=== PATIENT | female | born 1985 | race Caucasian/White ===

== ENCOUNTER → 2023-11-26 11:17 | Outpatient (BNVA) | payer OTHER, SELFPAY | PROVIDERS: Family Provider Family Medicine; Visit Provider Emergency Medicine | DX: E03.9 Hypothyroidism, unspecified (principal); R63.5 Abnormal weight gain; R53.83 Other fatigue | CPT/HCPCS: 80053; 84443; 85025 ==

== ENCOUNTER → 2024-03-27 11:28 | Outpatient (BNVA) | payer OTHER, SELFPAY | PROVIDERS: Family Provider Family Medicine; Visit Provider Nurse Practitioner | DX: E03.9 Hypothyroidism, unspecified (principal); E55.9 Vitamin D deficiency, unspecified | CPT/HCPCS: 82306; 82607; 84439; 84443; 84480 ==

== ENCOUNTER 2024-05-05 10:58 | Outpatient (CLI) | payer OTHER, SELFPAY ==
--- NOTE | 2024-05-05 11:30 | MM_ITS ---
WS: [id number] BILATERAL 3D TOMOSYNTHESIS DIGITAL SCREENING MAMMOGRAPHY WITH CAD CLINICAL INFORMATION: Z12.39 - Encounter for other screening for malignant neop... HISTORY: Screening mammogram. No current complaints. COMPARISON: 2018 TECHNIQUE: Bilateral CC and MLO views. FINDINGS: Evidence of bilateral breast reduction The breasts are composed of heterogeneous fibroglandular density tissue, which can limit the detectio n of small underlying mass lesions. No suspicious mass, asymmetry, calcifications, or architectural d istortion. No evidence of malignancy. MM/[place] [id number] IMPRESSION: BI-RADS: 2-Benign FOLLOW UP: 1 Year Follow-up Recommend return to annual screening mammography.
== END 2024-05-05 10:59 | disposition home or self-care (01) ==
LOC: RAD 10:58
PROVIDERS: Family Provider Family Medicine; PCP Nurse Practitioner; Visit Provider Nurse Practitioner
DX: Z12.31 Encounter for screening mammogram for malignant neoplasm of breast (principal); R92.333 Mammographic heterogeneous density, bilateral breasts; R92.323 Mammographic fibroglandular density, bilateral breasts
CPT/HCPCS: 77063; 77067

== ENCOUNTER → 2024-10-08 14:02 | Outpatient (BNVA) | payer OTHER, SELFPAY | PROVIDERS: Family Provider Family Medicine; PCP Nurse Practitioner; Visit Provider Nurse Practitioner | DX: E03.9 Hypothyroidism, unspecified (principal) | CPT/HCPCS: 84443 ==

== ENCOUNTER → 2025-04-12 11:11 | Outpatient (BNVA) | payer OTHER, SELFPAY | PROVIDERS: Family Provider Nurse Practitioner; PCP Nurse Practitioner; Visit Provider Nurse Practitioner | DX: E03.9 Hypothyroidism, unspecified (principal); R63.5 Abnormal weight gain; R14.0 Abdominal distension (gaseous); L20.9 Atopic dermatitis, unspecified | CPT/HCPCS: 82306; 83001; 83002; 84439; 84443; 84481 ==